=== PATIENT | female | born 1980 | race Caucasian/White ===

== ENCOUNTER → 2016-09-06 | Outpatient (CLI) | payer MEDICARE, MEDICAID | LOC: RAD 13:44 | PROVIDERS: ATTEND Physician Assistant | DX: M25.512 Pain in left shoulder (principal); M19.012 Primary osteoarthritis, left shoulder ==

== ENCOUNTER → 2017-02-28 | Outpatient (CLI) | payer MEDICARE, MEDICAID ==
[2017-02-28 11:30] LABS: ALANINE AMINOTRANSFERASE 26 U/L (9-52); ALBUMIN 4.1 g/dL (3.5-5.0); ALKALINE PHOSPHATASE 71 U/L (38-126); ANION GAP 6 (5-19); ASPARTATE AMINO TRANSFERASE 28 U/L (14-36); BILIRUBIN,DIRECT 0.3 mg/dL (0.0-0.4); BILIRUBIN,TOTAL 0.3 mg/dL (0.2-1.3); BLOOD UREA NITROGEN 6 mg/dL (7-20); C-REACTIVE PROTEIN 21.9 mg/L (<10.0); CALCIUM 9.9 mg/dL (8.4-10.2); CARBON DIOXIDE 31 mmol/L (22-30); CHLORIDE 104 mmol/L (98-107); CREATININE RESULT 0.83 mg/dL (0.52-1.25); GLUCOSE 92 mg/dL (75-110); POTASSIUM 4.2 mmol/L (3.6-5.0); SODIUM 140.6 mmol/L (137-145)
== END ==
LOC: OD 09:59
PROVIDERS: ATTEND Physician Assistant
DX: M25.512 Pain in left shoulder (principal)
CPT/HCPCS: 36415; 80053; 85652; 86038; 86140

== ENCOUNTER 2017-04-20 15:50 | Emergency (ER) | payer MEDICARE, MEDICAID ==
--- NOTE | 2017-04-20 16:28 | ER Document Report ---
ED Oral Problem - General Chief Complaint: Toothache Stated Complaint: NUMBNESS ON RIGHT SIDE OF FACE Time Seen by Provider: 04/20/17 16:15 Mode of Arrival: Ambulatory Information source: Patient Notes: 37-year-old female presents to ED for complaint of dental pain 1 week. She states she saw her primary doctor yesterday who wrote her prescription for penicillin. She is also on chronic pain management for her multiple sclerosis and she took hydrocodone 2 before she came to the emergency room. Since she saw her doctor yesterday she has developed numbness to the from the center of the chin to the line equal to her bottom lip on the right side. She is able to feel all sensation above the line of her lip and to the left of the center of her chin and below the line of her jaw just that one little area of about 2 in. she cannot feel sharpness she can feel pressure in that area. She does have a infected tooth #29 that she has not filled her prescription for Penicillin VK yet. TRAVEL OUTSIDE OF THE [place] IN LAST 30 DAYS: No - HPI Patient complains to provider of: Toothache, Other - Numbness to the right side of her chin Onset: Last week Onset: Gradual Quality of pain: Sharp Severity: Severe Pain Level: 5 Associated symptoms: Toothache Worsened by: Nothing Relieved by: Nothing Similar symptoms previously: Yes Recently seen / treated by doctor/dentist: Yes - Related Data Allergies/Adverse Reactions: No Known Allergies Allergy (Verified 04/20/17 15:54) Past Medical History - General Information source: Patient - Social History Smoking Status: Current Every Day Smoker Cigarette use (# per day): Yes Chew tobacco use (# tins/day): No Smoking Education Provided: Yes - Less than 1 minute Frequency of alcohol use: None Drug Abuse: Marijuana Family History: Reviewed & Not Pertinent Patient has suicidal ideation: No Patient has homicidal ideation: No - Past Medical History Cardiac Medical History: Reports: Hx Hypertension - with anxiety Pulmonary Medical History: Reports: None EENT Medical History: Reports: None Neurological Medical History: Reports: None Endocrine Medical History: Reports: None Renal/ Medical History: Reports: Hx Kidney Stones Malignancy Medical History: Reports: None GI Medical History: Reports: None Musculoskeltal Medical History: Reports Hx Multiple Sclerosis - sees neurologist and [facility] provider Skin Medical History: Reports None Psychiatric Medical History: Reports: Hx Anxiety, Hx Attention Deficit Hyperactivity Disorder, Hx Depression Traumatic Medical History: Reports: None Infectious Medical History: Reports: None Past Surgical History: Reports: Hx Abdominal Surgery, Hx Hysterectomy, Hx Kidney (Renal Surgery) - Immunizations Hx Diphtheria, Pertussis, Tetanus Vaccination: Yes Review of Systems - Review of Systems Constitutional: No symptoms reported EENT: Dental problem, Other - Numbness to the right side of the chin Cardiovascular: No symptoms reported Respiratory: No symptoms reported Gastrointestinal: No symptoms reported Genitourinary: No symptoms reported Female Genitourinary: No symptoms reported Musculoskeletal: No symptoms reported Skin: No symptoms reported Hematologic/Lymphatic: No symptoms reported Neurological/Psychological: No symptoms reported -: Yes All other systems reviewed and negative Physical Exam - Vital signs Vitals: Temp Pulse Resp BP Pulse Ox 98.5 F 94 16 176/103 H 97 04/20/17 15:54 04/20/17 15:54 04/20/17 15:54 04/20/17 15:54 04/20/17 15:54 Interpretation: Normal - General General appearance: Appears well, Alert - HEENT Head: Normocephalic, Atraumatic Eyes: Normal Pupils: PERRL Ears: Normal External canal: Normal Tympanic membrane: Normal Sinus: Normal Nasal: Normal Mouth/Lips: Caries Mucous membranes: Normal Teeth diagram: 1 - Cavity with no abscess noted 2 - States she cannot feel sharp to the area of this part of her chin. States she can feel pressure and movement but she cannot feel sharp or dull. Patient has a history of MS Pharynx: Normal Neck: Normal - Respiratory Respiratory status: No respiratory distress Chest status: Nontender Breath sounds: Normal Chest palpation: Normal - Cardiovascular Rhythm: Regular Heart sounds: Normal auscultation Murmur: No - Abdominal Inspection: Normal Distension: No distension Bowel sounds: Normal Tenderness: Nontender Organomegaly: No organomegaly - Back Back: Normal, Nontender - Extremities General upper extremity: Normal inspection, Nontender, Normal color, Normal ROM , Normal temperature General lower extremity: Normal inspection, Nontender, Normal color, Normal ROM , Normal temperature, Normal weight bearing. No: Wyatt's sign - Neurological Neuro grossly intact: Yes Cognition: Normal Orientation: AAOx4 Paicines Coma Scale Eye Opening: Spontaneous Mariam Coma Scale Verbal: Oriented Paicines Coma Scale Motor: Obeys Commands Paicines Coma Scale Total: 15 Speech: Normal Cranial nerves: Sensory deficit - decreased sensation to right chin. states cannot feel sharp Cerebellar coordination: Normal Motor strength normal: LUE, RUE, LLE, RLE Additional motor exam normals: Equal plasma center nurse Babinski reflex: Normal (flexor plantar) Sensory: Pin-prick - ro right chin states feels the pressure but not the sharp - Psychological Associated symptoms: Normal affect, Normal mood - Skin Skin Temperature: Warm Skin Moisture: Dry Skin Color: Normal Course - Re-evaluation Re-evalutation: 04/20/17 16:[address] Zaragoza. States patient needs to follow up with primary md and MS doctor. Patient is instructed to fill the prescription for Penicillin VK that she was given by her primary care doctor yesterday and to continue taking her pain medicine as has been ordered. She is to use viscous lidocaine a small amount to the area that is painful every 4 hours as needed and to follow-up with the dentist next week. 04/20/17 16:43 I had Ysabel Espinal to go in with me to examine the patient the patient had numbness from the center of her chin to just below the edge of her mouth she had no loss of sensation to her cheek. She was able to feel every prick on her cheek and her neck. She was able to smile. - Vital Signs Vital signs: Temp Pulse Resp BP Pulse Ox 98.6 F 93 20 153/96 H 97 04/20/17 16:35 04/20/17 16:35 04/20/17 16:35 04/20/17 16:35 04/20/17 16:35 Discharge - Discharge Clinical Impression: Pain due to dental caries Condition: Stable Disposition: HOME, SELF-CARE Additional Instructions: TOOTHACHE: Your pain is due to dental decay. The tooth must be repaired in order for you to feel better. You will, therefore, be referred to a dentist. We do not have dentists on the staff at [facility]. Severe swelling or drainage around a tooth usually means a dental abscess. This also requires evaluation and treatment by the dentist, but antibiotics may be prescribed while awaiting dental treatment. You should be rechecked immediately if you develop major swelling of the face, increasing pain, a lump in the jaw or gums, headache, difficulty swallowing, or fever. PENICILLIN V K: Please fill the prescription as it was prescribed yesterday for your dental pain You have been given a prescription for Penicillin VK. Your physician has determined that this is the best antibiotic for your condition. Pen VK can be taken with meals, however more of the antibiotic gets into the bloodstream if it's taken on an empty stomach. Penicillin usually has no side effects. However, allergy to penicillins is common. If you have had an allergic reaction to any drug of the penicillin family, you should never take any other penicillin. Notify your doctor at once if you develop hives, itching, swelling, faintness, or shortness of breath. FOLLOW-UP CARE: You have been referred for follow-up care to the dentists listed below. Call the dentists office for an appointment as you were instructed or within the next two days. If you experience worsening or a significant change in your symptoms, notify the physician immediately or return to the Emergency Department at any time for re-evaluation. [facility] [address], [place] Sunday mornings, by appointment [facility] [address] [place] [address] [facility] [place] [address] [facility] [address] [facility] [address] [email or web address] [address] [place] [address] Sunday- 8:00am to 5:00 pm Will see patients from other [facility]. Charges based on income and family size and accepts Medicare, Medicaid, and Insurances Will pull molars [facility] [id number] Hours of Operation 8:00 am - 4:30 pm days The following dental offices accept Medicaid: [facility] Dr. Morgan Dr. Mckeon Dr. Almonte Dr. Gallagher Kenyon Salcedo, [place], and Marjorie oral surgery Dr. Oliver ([place]) Dr. Xiong ([place]) [facility] Drs. Canales ([place]) Dr. Hughes ([place]) [facility] Dr. Perkins ([place]) Drs. Barrera and ([place]) Medicaid Care Line Forms: Elevated Blood Pressure, Smoking Cessation Education
[2017-04-20] MEDS ORDERED: LIDOCAINE 2% VISCOUS SOLN 20 ML UDCUP PO ONE (16:30)
[2017-04-20 16:37] VITALS: BP 153/96
== END 2017-04-20 16:50 | disposition home or self-care (01) ==
LOC: ER 15:50
DX: K08.9 Disorder of teeth and supporting structures, unspecified (principal); R20.0 Anesthesia of skin; G89.29 Other chronic pain; F17.210 Nicotine dependence, cigarettes, uncomplicated; G35 Multiple sclerosis; Z87.442 Personal history of urinary calculi; Z90.710 Acquired absence of both cervix and uterus
CPT/HCPCS: 99282; J3490

== ENCOUNTER → 2017-08-24 | Outpatient (CLI) | payer MEDICARE, MEDICAID ==
--- NOTE | 2017-08-24 13:38 | RADIOLOGY REPORT (SQ) ---
EXAM DESCRIPTION: MRI HEAD COMBO COMPLETED DATE/TIME: 08/24/2017 1:23 pm REASON FOR STUDY: WHITE MATTER DISEASE (R90.82), GAIT INSTABILITY (R26.81) R90.82 WHITE MATTER DISE ASE, UNSPECIFIED R26.81 UNSTEADINESS ON FEET R41.3 OTHER AMNESIA COMPARISON: 12/13/2013 TECHNIQUE: Multiplanar imaging includes noncontrasted T1, T2, FLAIR, diffusion with ADC map and post gadolinium contrast T1 sequences. Images stored on PACS. CONTRAST TYPE AND DOSE: 15 mL Multihance. RENAL FUNCTION: None required. The patient is less than 50 years old. LIMITATIONS: None. FINDINGS: ANATOMY: No anomalies. Normal vascular flow voids. Pituitary fossa normal. CSF SPACES: Normal in size and contour. No hemorrhage. CEREBRUM: Several well-circumscribed foci of increased signal FLAIR sequence in the periventricular w jory matter are not significantly changed. Several lesions oriented perpendicular to the lateral john tricles. None of the lesions enhance. POSTERIOR FOSSA: No signal alteration. No hemorrhage. No edema, masses, or mass effect. Internal salvatore tory canals, cerebellopontine angles, mastoids normal. No enhancing lesions. No abnormal enhancement post contrast. DIFFUSION IMAGING: Negative for acute or subacute infarction. ORBITS: No masses. Globes normal. PARANASAL SINUSES: No fluid levels. Mucosa normal. OTHER: No other significant finding. IMPRESSION: Inactive demyelinating disease. No significant change. EVIDENCE OF ACUTE STROKE: NO. TECHNICAL DOCUMENTATION: JOB ID: [id number] [employer]- All Rights Reserved
== END ==
LOC: RAD 12:32
PROVIDERS: ATTEND Psychiatry & Neurology Neurology
DX: R90.82 White matter disease, unspecified (principal); R26.81 Unsteadiness on feet; R41.3 Other amnesia
CPT/HCPCS: 70553; A9577

== ENCOUNTER 2018-12-06 13:41 | Emergency (ER) | payer MEDICARE, MEDICAID ==
--- NOTE | 2018-12-06 15:58 | ER Document Report ---
Addendum entered and electronically signed by KIMMY AMAYA PA-C 12/06/18 15:58: Course - Re-evaluation Re-evalutation: 12/06/18 15:58 H/o total hysterectomy. - Vital Signs Vital signs: Temp Pulse Resp BP Pulse Ox 98.3 F 104 H 15 132/91 H 95 12/06/18 14:04 12/06/18 14:04 12/06/18 14:04 12/06/18 14:04 12/06/18 14:04 Original Note: ED Medical Screen (RME) - General Chief Complaint: Abdominal Pain Stated Complaint: ABDOMINAL/SIDE PAIN Time Seen by Provider: 12/06/18 15:52 Primary Care Provider: ALLIE MOCTEZUMA MD [Primary Care Provider] - Follow up as needed TRAVEL OUTSIDE OF THE U.S. IN LAST 30 DAYS: No - HPI Notes: 12/06/18 15:56 Patient is a 38-year-old female with a history of MS and chronic pain who presents complaining of epigastric and right upper quadrant abdominal pain over the past month with occasional pain in her right side of her abdomen as well. Patient states that she has had associated nausea, vomiting, watery diarrhea. Denies KRUSE, fever, neck pain, URI, CP, SOB, dysuria, or rash. I have treated and performed a rapid initial assessment of this patient. A comprehensive ED assessment and evaluation of the patient, analysis of test results and completion of medical decision making process will be conducted by additional ED providers. PHYSICAL EXAMINATION: GENERAL: Well-appearing, well-nourished and in no acute distress. A&Ox4. Answers questions appropriately. LUNGS: Breath sounds clear to auscultation bilaterally and equal. No wheezes rales or rhonchi. HEART: Regular rate and rhythm without murmurs, rubs, gallops. ABDOMEN: Soft, nondistended abdomen. No guarding, no rebound. Normal bowel sounds present. No CVA tenderness bilaterally. + Right upper quadrant andepigastric tenderness (cannot elicit thorough abd exam w/o bed, however). Extremities: No cyanosis, clubbing, or edema b/l. NEUROLOGICAL: Normal speech, normal gait. PSYCH: Normal mood, normal affect. - Related Data Allergies/Adverse Reactions: No Known Allergies Allergy (Verified 12/06/18 13:46) Past Medical History - Past Medical History Cardiac Medical History: Reports: Hx Hypertension - with anxiety Denies: Hx Heart Attack Pulmonary Medical History: Denies: Hx Asthma, Hx Tuberculosis Neurological Medical History: Denies: Hx Cerebrovascular Accident, Hx Seizures Renal/ Medical History: Reports: Hx Kidney Stones. Denies: Hx Peritoneal Dialysis GI Medical History: Denies: Hx Hepatitis, Hx Hiatal Hernia, Hx Ulcer Musculoskeltal Medical History: Reports Hx Multiple Sclerosis - sees neurologist and [facility] provider Psychiatric Medical History: Reports: Hx Anxiety, Hx Attention Deficit Hyperactivity Disorder, Hx Depression Infectious Medical History: Denies: Hx Hepatitis Past Surgical History: Reports: Hx Abdominal Surgery, Hx Hysterectomy, Hx Kidney (Renal Surgery). Denies: Hx Mastectomy, Hx Open Heart Surgery, Hx Pacemaker - Immunizations Hx Diphtheria, Pertussis, Tetanus Vaccination: Yes Physical Exam - Vital signs Vitals: Temp Pulse Resp BP Pulse Ox 98.3 F 104 H 15 132/91 H 95 12/06/18 14:04 12/06/18 14:04 12/06/18 14:04 12/06/18 14:04 12/06/18 14:04 Course - Vital Signs Vital signs: Temp Pulse Resp BP Pulse Ox 98.3 F 104 H 15 132/91 H 95 12/06/18 14:04 12/06/18 14:04 12/06/18 14:04 12/06/18 14:04 12/06/18 14:04 Doctor's Discharge - Discharge Referrals: ALLIE MOCTEZUMA MD [Primary Care Provider] - Follow up as needed
[2018-12-06 16:36] LABS: ABSOLUTE EOSINOPHILS # (AUTO) 0.1 10^3/uL (0.0-0.6); ABSOLUTE LYMPHOCYTES (AUTO) 3.8 10^3/uL (0.5-4.7); ABSOLUTE MONOCYTES (AUTO) 0.5 10^3/uL (0.1-1.4); ABSOLUTE NEUT (AUTO) 4.6 10^3/uL (1.7-8.2); BASOPHILS % (AUTO) 0.3 % (0-2); HEMATOCRIT 43.8 % (36.0-47.0); HEMOGLOBIN 14.8 g/dL (12.0-15.5); LYMPHOCYTES % (AUTO) 42.1 % (13-45); MEAN CORPUSCULAR HEMOGLOBIN 31.8 pg (27.0-33.4); MEAN CORPUSCULAR HGB CONC 33.8 g/dL (32.0-36.0); MEAN CORPUSCULAR VOLUME 94 fl (80-97); MONOCYTES % (AUTO) 5.2 % (3-13); PLATELET COUNT 222 10^3/uL (150-450); RED BLOOD COUNT 4.66 10^6/uL (3.72-5.28); SEGMENTED NEUTROPHILS % (AUTO) 51.4 % (42-78); TOTAL CELLS COUNTED % (AUTO) 100 %
--- NOTE | 2018-12-06 16:37 | RADIOLOGY REPORT (SQ) ---
EXAM DESCRIPTION: U/S ABDOMEN LIMITED W/O DOP COMPLETED DATE/TIME: 12/06/2018 4:29 pm REASON FOR STUDY: epigastric/ruq pain COMPARISON: None. TECHNIQUE: Dynamic and static grayscale images acquired of the abdomen and recorded on PACS. Additio nal selected color Doppler and spectral images recorded. LIMITATIONS: None. FINDINGS: PANCREAS: No masses. Visualized pancreatic duct normal caliber. LIVER: No masses. Echotexture normal. LIVER VASCULATURE: Normal directional flow of the main portal vein and hepatic veins. GALLBLADDER: No stones. Normal wall thickness. No pericholecystic fluid. ULTRASOUND-DETECTED WOODS'S SIGN: Negative. INTRAHEPATIC DUCTS AND COMMON DUCT: CBD and intrahepatic ducts normal caliber. No filling defects. INFERIOR VENA CAVA: Normal flow. AORTA: No aneurysm. RIGHT KIDNEY: Normal size. Normal echogenicity. No solid or suspicious masses. No hydronephrosis. No calcifications. PERITONEAL AND RIGHT PLEURAL SPACE: No ascites or effusions. OTHER: No other significant findings. IMPRESSION: NORMAL RIGHT UPPER QUADRANT ULTRASOUND. TECHNICAL DOCUMENTATION: JOB ID: [id number] [employer]- All Rights Reserved Reading location - IP/workstation name: [email or web address]
[2018-12-06 16:41] LABS: APPEARANCE,URINE SLIGHTLY-CLOUDY; BILIRUBIN,URINE NEGATIVE (NEGATIVE); CALCIUM OXALATE CRYSTALS,URINE RARE /HPF; COLOR,URINE YELLOW; GLUCOSE, URINE NEGATIVE (NEGATIVE); KETONES,URINE NEGATIVE (NEGATIVE); LEUKOCYTE ESTERASE,URINE NEGATIVE (NEGATIVE); NITRITE,URINE NEGATIVE (NEGATIVE); PROTEIN,URINE NEGATIVE (NEGATIVE); URINE SPECIFIC GRAVITY 1.013; UROBILINOGEN,URINE NEGATIVE mg/dL (<2.0)
[2018-12-06 16:51] LABS: ALANINE AMINOTRANSFERASE 21 U/L (9-52); ALBUMIN 4.4 g/dL (3.5-5.0); ALKALINE PHOSPHATASE 61 U/L (38-126); ANION GAP 10 (5-19); ASPARTATE AMINO TRANSFERASE 24 U/L (14-36); BILIRUBIN,DIRECT 0.2 mg/dL (0.0-0.4); BILIRUBIN,TOTAL 0.2 mg/dL (0.2-1.3); BLOOD UREA NITROGEN 6 mg/dL (7-20); CALCIUM 10.3 mg/dL (8.4-10.2); CARBON DIOXIDE 32 mmol/L (22-30); CHLORIDE 100 mmol/L (98-107); GLUCOSE 91 mg/dL (75-110); POTASSIUM 4.4 mmol/L (3.6-5.0); SODIUM 141.5 mmol/L (137-145); TOTAL PROTEIN 7.2 g/dL (6.3-8.2)
[2018-12-06] MEDS ORDERED: METOCLOPRAMIDE HCL 10 MG TABLET PO ONE (18:26)
[2018-12-06] MEDS ORDERED: DICYCLOMINE HCL INJ 20 MG/2 ML AMPULE IM ONE (18:26)
--- NOTE | 2018-12-06 18:31 | ER Document Report ---
ED General - General Chief Complaint: Abdominal Pain Stated Complaint: ABDOMINAL/SIDE PAIN Time Seen by Provider: 12/06/18 15:52 Primary Care Provider: ALLIE MOCTEZUMA MD [NO LOCAL MD] - Follow up as needed Mode of Arrival: Ambulatory Information source: Patient TRAVEL OUTSIDE OF THE [place] IN LAST 30 DAYS: No - HPI Patient complains to provider of: Abdominal discomfort, nausea, vomiting, decreased ability to eat Onset: Other - Chronic problem Onset/Duration: Constant Quality of pain: Fullness Severity: Severe Pain Level: 4 Associated symptoms: None. denies: Chills, Diarrhea, Fever, Nausea, Vomiting Exacerbated by: Denies Relieved by: Denies Similar symptoms previously: No Recently seen / treated by doctor: No Notes: 38-year-old female coming in today with upper abdominal fullness, discomfort, nausea, vomiting, weight loss. Symptoms have been going on for some time. Patient has not seen anybody about this. No fevers or chills. Diarrhea. - Related Data Allergies/Adverse Reactions: No Known Allergies Allergy (Verified 12/06/18 13:46) Past Medical History - General Information source: Patient - Social History Smoking Status: Current Every Day Smoker Chew tobacco use (# tins/day): No Frequency of alcohol use: None Drug Abuse: None Family History: Reviewed & Not Pertinent Patient has suicidal ideation: No Patient has homicidal ideation: No - Past Medical History Cardiac Medical History: Reports: Hx Hypertension - with anxiety Denies: Hx Heart Attack Pulmonary Medical History: Denies: Hx Asthma, Hx Tuberculosis Neurological Medical History: Denies: Hx Cerebrovascular Accident, Hx Seizures Renal/ Medical History: Reports: Hx Kidney Stones. Denies: Hx Peritoneal Dialysis GI Medical History: Denies: Hx Hepatitis, Hx Hiatal Hernia, Hx Ulcer Musculoskeletal Medical History: Reports Hx Multiple Sclerosis - sees neurologist and [facility] provider Psychiatric Medical History: Reports: Hx Anxiety, Hx Attention Deficit Hyperactivity Disorder, Hx Depression Infectious Medical History: Denies: Hx Hepatitis Past Surgical History: Reports: Hx Abdominal Surgery, Hx Hysterectomy, Hx Kidney (Renal Surgery). Denies: Hx Mastectomy, Hx Open Heart Surgery, Hx Pacemaker - Immunizations Hx Diphtheria, Pertussis, Tetanus Vaccination: Yes Review of Systems - Review of Systems Notes: Constitutional: No fevers. No chills. EENT: No eye redness. No eye pain. No ear pain. No sore throat. Cardiovascular: No chest pain. No palpitations. Respiratory: No cough. No shortness of breath. No respiratory distress. Gastrointestinal: Positive for abdominal fullness, nausea, vomiting. Negative for diarrhea Genitourinary: Atraumatic. No lesions. No pain. No discharge. Musculoskeletal: Atraumatic. No swelling. No deformities. Skin: No rash or lesions. Lymphatic: No swollen lymph nodes. Neurologic: No headache. No syncope. Psychiatric: No suicidal or homicidal ideation. Physical Exam - Vital signs Vitals: Temp Pulse Resp BP Pulse Ox 98.3 F 104 H 15 132/91 H 95 12/06/18 14:04 12/06/18 14:04 12/06/18 14:04 12/06/18 14:12/06/18 14:04 - Notes Notes: General: Well-developed, well-nourished. In no acute distress. Non-toxic appearing. Cardiac: Well-perfused. Regular rate and rhythm. No murmurs, rubs, or gallops. Pulmonary: No respiratory distress. No cyanosis. Bilateral lung fiels are clear to auscultation. Abdominal: Non-distended. Non-rigid. Bowels sounds are present in all four quadrants. No guarding or rebound. HEENT: Head is atraumatic. Conjunctivae not reddened. No tearing. PERRL. EOMI. Orbits atraumatic. No periorbital swelling or erythema. Oropharynx is without erythema, swelling, or exudates. Neck: Supple. No adenopathy. No meningismus. Dermatologic: Warm with good turgor. No rash. Atraumatic. Chest: Atraumatic. No chest wall tenderness to palpation. Musculoskeletal: Moves all extremities well. No range of motion deficits. no muscular or joint tenderness. No paraspinal muscle tenderness. no midline spinal tenderness or step-off. Genitourinary: Examination deferred Neurologic: No gross neurologic deficits. Psychiatric: Normal mood. Course - Re-evaluation Re-evalutation: 12/06/18 18:29 Labs normal. Ultrasound normal. Will discharge patient home on Reglan and Bentyl. She can follow-up with gastroenterology. - Vital Signs Vital signs: Temp Pulse Resp BP Pulse Ox 98.3 F 104 H 15 132/91 H 95 12/06/18 14:04 12/06/18 14:04 12/06/18 14:04 12/06/18 14:04 12/06/18 14:04 - Laboratory Result Diagrams: 12/06/18 16:10 12/06/18 16:10 Laboratory results interpreted by me: 12/06/18 12/06/18 16:10 16:10 Carbon Dioxide 32 H BUN 6 L Calcium 10.3 H Urine Ascorbic Acid 40 H Discharge - Discharge Clinical Impression: Abdominal fullness, Nausea Condition: Good Disposition: HOME, SELF-CARE Instructions: Abdominal Pain ([facility]), Antispasmodics ([facility]), Reglan ([facility]) Prescriptions: Dicyclomine HCl [Bentyl 20 mg Tablet] 20 mg PO Q6HP PRN #20 tablet PRN Reason: Metoclopramide HCl [Reglan 10 mg Tablet] 1 tab PO ASDIR PRN #20 tablet PRN Reason: Referrals: ALLIE MOCTEZUMA MD [NO LOCAL MD] - Follow up as needed
[2018-12-06 18:50] VITALS: BP 116/73
== END 2018-12-06 18:51 | disposition home or self-care (01) ==
LOC: ER 13:41
DX: R19.8 Other specified symptoms and signs involving the digestive system and abdomen (principal); R11.2 Nausea with vomiting, unspecified; R10.9 Unspecified abdominal pain; R63.4 Abnormal weight loss; F17.200 Nicotine dependence, unspecified, uncomplicated; I10 Essential (primary) hypertension; Z90.710 Acquired absence of both cervix and uterus
CPT/HCPCS: 99284; 96372; 36415; 83690; 85025; 80053; 81001; 76705; J0500; A9270

== ENCOUNTER → 2019-08-27 | Outpatient (CLI) | payer MEDICARE, MEDICAID ==
--- NOTE | 2019-08-27 13:16 | RADIOLOGY REPORT (SQ) ---
EXAM DESCRIPTION: HAND BILATERAL 2 VIEWS COMPLETED DATE/TIME: 08/27/2019 1:00 pm REASON FOR STUDY: POLYARTHRALGIA M25.50 PAIN IN UNSPECIFIED JOINT COMPARISON: None. EXAM PARAMETERS: NUMBER OF VIEWS: Two views right hand. Two views left hand. TECHNIQUE: AP and lateral radiographic images acquired of bilateral hands. LIMITATIONS: None. FINDINGS: RIGHT HAND: MINERALIZATION: Normal. BONES: No acute fracture or dislocation. No worrisome bone lesions. No significant osteophytes. JOINTS: No erosions. No elvia-articular osteopenia. No chondrocalcinosis. SOFT TISSUES: No swelling. No calcifications. OTHER: No other significant finding. LEFT HAND: MINERALIZATION: Normal. BONES: No acute fracture or dislocation. No worrisome bone lesions. No significant osteophytes. JOINTS: No erosions. No elvia-articular osteopenia. No chondrocalcinosis. SOFT TISSUES: No swelling. No calcifications. OTHER: No other significant finding. IMPRESSION: NEGATIVE STUDY BILATERAL HANDS. NO ACUTE POST-TRAUMATIC CHANGES. NO EXPLANATION FOR PAIN . TECHNICAL DOCUMENTATION: JOB ID: [id number] 2010 [employer]- All Rights Reserved Reading location - IP/workstation name: [email or web address]
[2019-08-27 13:23] LABS: ABSOLUTE EOSINOPHILS # (AUTO) 0.1 10^3/uL (0.0-0.6); ABSOLUTE LYMPHOCYTES (AUTO) 3.3 10^3/uL (0.5-4.7); ABSOLUTE MONOCYTES (AUTO) 0.3 10^3/uL (0.1-1.4); ABSOLUTE NEUT (AUTO) 2.7 10^3/uL (1.7-8.2); BASOPHILS % (AUTO) 0.4 % (0-2); EOSINOPHILS % (AUTO) 1.3 % (0-6); HEMATOCRIT 40.5 % (36.0-47.0); HEMOGLOBIN 14.1 g/dL (12.0-15.5); LYMPHOCYTES % (AUTO) 51.2 % (13-45); MEAN CORPUSCULAR HEMOGLOBIN 32.7 pg (27.0-33.4); MEAN CORPUSCULAR HGB CONC 34.8 g/dL (32.0-36.0); MEAN CORPUSCULAR VOLUME 94 fl (80-97); MONOCYTES % (AUTO) 5.2 % (3-13); PLATELET COUNT 206 10^3/uL (150-450); RED BLOOD COUNT 4.32 10^6/uL (3.72-5.28); RED CELL DISTRIBUTION WIDTH 13.1 % (11.5-14.0); SEGMENTED NEUTROPHILS % (AUTO) 41.9 % (42-78); TOTAL CELLS COUNTED % (AUTO) 100 %; WHITE BLOOD COUNT 6.5 10^3/uL (4.0-10.5)
[2019-08-27 13:46] LABS: ALBUMIN 4.1 g/dL (3.5-5.0); ALKALINE PHOSPHATASE 49 U/L (38-126); ANION GAP 5 (5-19); ASPARTATE AMINO TRANSFERASE 22 U/L (14-36); BILIRUBIN,TOTAL 0.3 mg/dL (0.2-1.3); BLOOD UREA NITROGEN 6 mg/dL (7-20); CALCIUM 9.9 mg/dL (8.4-10.2); CARBON DIOXIDE 31 mmol/L (22-30); CHLORIDE 103 mmol/L (98-107); GLUCOSE 93 mg/dL (75-110); POTASSIUM 4.1 mmol/L (3.6-5.0); TOTAL PROTEIN 6.8 g/dL (6.3-8.2)
[2019-08-27 13:50] LABS: C-REACTIVE PROTEIN < 5.0 mg/L (<10.0)
[2019-08-27 14:08] LABS: ERYTHROCYTE SEDIMENTATION RATE 23 mm/hr (0-20)
[2019-08-28 16:37] LABS: CYTOPLASMIC (C-ANCA) <1:20 titer (Neg:<1:20)
[2019-08-29 07:45] LABS: ATYPICAL PANCA <1:20 titer (Neg:<1:20); CYCLIC CITRUL PEPTIDE IGG/A AB 9 units (0-19)
== END ==
LOC: OD 12:29
PROVIDERS: ATTEND Nurse Practitioner Family
DX: M25.50 Pain in unspecified joint (principal)
CPT/HCPCS: 36415; 80053; 85025; 85652; 86021; 86140; 86200; 86431

== ENCOUNTER → 2019-09-01 | Outpatient (CLI) | payer MEDICARE, MEDICAID ==
--- NOTE | 2019-09-01 11:48 | WOMENS IMAGING REPORT ---
EXAM DESCRIPTION: 3D SCREENING MAMMO BILAT COMPLETED DATE/TIME: 09/01/2019 10:50 am REASON FOR STUDY: Z12.31 ENCOUNTER FOR SCREENING MAMMOGRAM FOR MALIGNANT NEOPLASM OF BREAST Z12.31 ENCNTR SCREEN MAMMOGRAM FOR MALIGNANT NEOPLASM OF REG COMPARISON: None. EXAM PARAMETERS: Views: Standard craniocaudal and mediolateral oblique views of each breast recorded using digital acquisition and breast tomosynthesis. Read with the assistance of CAD. .[facility] - [facility] [employer] Version 9.2 LIMITATIONS: None. FINDINGS: No suspicious masses, suspicious calcifications or architectural distortion. No areas of c oncern. IMPRESSION: NEGATIVE MAMMOGRAM. BIRADS 1. BREAST DENSITY: b. There are scattered areas of fibroglandular density. BIRAD: ASSESSMENT: 1 NEGATIVE RECOMMENDATION: ROUTINE SCREENING COMMENT: The patient has been notified of the results by letter per MQSA requirements. Additional no tification policies are in place for contacting patient with suspicious or incomplete findings. Quality ID #[id number]: The [employer] recommends an annual screening mammogram for women aged 40 years or over. This facility utilizes a reminder system to ensure that all patients receive reminder letters, and/or direct phone calls for appointments. This includes reminders for routine scr eening mammograms, diagnostic mammograms, or other Breast Imaging Interventions when appropriate. Th is patient will be placed in the appropriate reminder system. TECHNICAL DOCUMENTATION: FINDING NUMBER: (1) ASSESSMENT: (1) JOB ID: [id number] 2010 [employer]- All Rights Reserved Reading location - IP/workstation name: [email or web address]
== END ==
LOC: WI 09:59
PROVIDERS: ATTEND Nurse Practitioner Family
DX: Z12.31 Encounter for screening mammogram for malignant neoplasm of breast (principal); Z85.3 Personal history of malignant neoplasm of breast
CPT/HCPCS: 77063; 77067

== ENCOUNTER 2019-11-19 22:05 | Emergency (ER) | payer MEDICARE, MEDICAID ==
[2019-11-19] MEDS ORDERED: METHYLPREDNISOLONE INJ 125 MG/2 ML SDV IV ONE (23:57)
--- NOTE | 2019-11-20 00:04 | ER Document Report ---
ED Skin Rash/Insect Bite/Abscs - General Chief Complaint: Rash Stated Complaint: ALLERGIC REACTION Time Seen by Provider: 11/19/19 23:44 Primary Care Provider: GRISELDA BONE NP [Primary Care Provider] - Follow up as needed Mode of Arrival: Ambulatory Information source: Patient Notes: 39-year-old woman presents to the emergency department history of apparently doing yard work on Sunday when she got into poison fidelina. She complains of rash on her arms and hands bilaterally on the right side of her face involving her lips. And she also is concerned that she is having the sensation that her throat is closing. She denies shortness of breath or wheezing. TRAVEL OUTSIDE OF THE [place] IN LAST 30 DAYS: No - Related Data Allergies/Adverse Reactions: No Known Allergies Allergy (Verified 11/19/19 22:14) Past Medical History - Social History Smoking Status: Current Every Day Smoker Frequency of alcohol use: None Drug Abuse: Marijuana Family History: Reviewed & Not Pertinent Patient has homicidal ideation: No - Past Medical History Cardiac Medical History: Reports: Hx Hypertension - with anxiety Denies: Hx Heart Attack Pulmonary Medical History: Denies: Hx Asthma, Hx Tuberculosis Neurological Medical History: Denies: Hx Cerebrovascular Accident, Hx Seizures Renal/ Medical History: Reports: Hx Kidney Stones. Denies: Hx Peritoneal Dialysis GI Medical History: Denies: Hx Hepatitis, Hx Hiatal Hernia, Hx Ulcer Musculoskeletal Medical History: Reports Hx Multiple Sclerosis - sees neurologist and [facility] provider Psychiatric Medical History: Reports: Hx Anxiety, Hx Attention Deficit Hyperactivity Disorder, Hx Depression Infectious Medical History: Denies: Hx Hepatitis Past Surgical History: Reports: Hx Abdominal Surgery, Hx Hysterectomy, Hx Kidney (Renal Surgery). Denies: Hx Mastectomy, Hx Open Heart Surgery, Hx Pacemaker - Immunizations Hx Diphtheria, Pertussis, Tetanus Vaccination: Yes Review of Systems - Review of Systems Notes: Constitutional: Negative for fever. HENT: Negative for sore throat. Eyes: Negative for visual changes. Cardiovascular: Negative for chest pain. Respiratory: Negative for shortness of breath. Gastrointestinal: Negative for abdominal pain, vomiting or diarrhea. Genitourinary: Negative for dysuria. Musculoskeletal: Negative for back pain. Skin: + Rash. Neurological: Negative for headaches, weakness or numbness. 10 point ROS negative except as marked above and in HPI. Physical Exam - Vital signs Vitals: Temp Pulse Resp BP Pulse Ox 97.9 F 98 12 126/91 H 96 11/19/19 22:13 11/19/19 22:13 11/19/19 22:13 11/19/19 22:13 11/19/19 22:13 - Notes Notes: PHYSICAL EXAMINATION: Physical Exam: General: Well-nourished well-developed in no acute distress HEENT: NC/AT, pupils equal round and reactive to light, MM moist,nares clear, oropharynx mild erythema in the mucous membranes., airway patent Neck: supple, no adenopathy, no masses. Good range of motion Lungs: clear, no wheezing, no rales no rhonchi CVS: Regular rate and rhythm no murmur gallop or rub Abdomen: Soft, active, nontender, no masses, no hepatosplenomegaly Ext: No edema, clubbing or cyanosis. Neuro: Alert and responsive, moving all 4 extremities on command, cranial nerves intact, no focal findings Skin: diffuse erythematous rash involving the volar surfaces of the forearms bilaterally, scattered areas of erythema rash on the fingers and dorsal aspect of the hand. Small patch of erythema noted in the right lateral aspect of the face with some involvement of the right lower lip. PSYCH: Normal mood, normal affect. Course - Re-evaluation Re-evalutation: 11/19/19 23:59 Patient presents with contact dermatitis likely likely due to poison fidelina. She is given an IV dose of steroids, being discharged home with prednisone pack and hydroxyzine. I have expressed to patient that she could follow-up with her primary care doctor as needed. Patient is in agreement with this plan. - Vital Signs Vital signs: Temp Pulse Resp BP Pulse Ox 97.9 F 98 12 126/91 H 96 11/19/19 22:14 11/19/19 22:13 11/19/19 22:13 11/19/19 22:13 11/19/19 22:13 Discharge - Discharge Clinical Impression: Contact dermatitis and eczema due to plant Condition: Good Disposition: HOME, SELF-CARE Instructions: Contact Dermatitis (OM) Additional Instructions: You were treated for a contact dermatitis in the emergency department tonight, use the prednisone and hydroxyzine as prescribed. Follow-up with your primary care doctor as needed if your symptoms are worsening or if you have other concerns you may return to the emergency department for further evaluation and treatment. HOME CARE INSTRUCTIONS & INFORMATION: Thank you for choosing us for your medical needs. We hope you're satisfied with the care you received. After you leave, you must properly care for your problem and, at the same time, observe its progress. Any condition can change. Some illnesses can change rapidly over hours or days. If your condition worsens, return to the Emergency Department or see your physician promptly. ABOUT YOUR X-RAYS AND EKG'S: If you had an EKG or X-rays taken, they have been read by the Emergency Physician. The X-rays and EKG's will also be read by a Radiologist or Dye Boarding Machine Operator within 24 hours. If discrepancies are noted, you will be notified by telephone. Please be certain the ED has a correct telephone number & address where you can be reached. Also, realize that some fractures or abnormalities do not show up on initial X-rays. If your symptoms continue, see your physician. ABOUT YOUR LABORATORY TEST: If you had laboratory tests, the results have been reviewed by the Emergency Physician. Some test results (for example cultures) may not be available for several days. You will be contacted if any test result shows you need additional treatment. Please be certain the ED has a correct telephone number and address where you can be reached. ABOUT YOUR MEDICATIONS: You will receive instructions on how to take your me dicine on the prescription label you receive. Additional information may be provided by the Pharmacy. If you have questions afterwards, call the ED for clarification or further instructions. Some prescribed medications may cause drowsiness. Do not perform tasks such as driving a car or operating machinery without consulting your Pharmacist. If you feel you need a refill of pain medication, your condition will need re-evaluation. Please do not call for a refill of any medication. ABOUT YOUR SIGNATURE: Signature of this document acknowledges to followin. Understanding that you received emergency treatment and that you may be released before al medical problems are known or treated. Please be certain the ED has a correct phone number & address where you can be reached. 2. Acknowledgement that you will arrange for follow-up care as recommended. 3. Authorization for the Emergency Physician to provide information to your follow-up Physician in order to maximize your care. AT ANY TIME, IF YOUR SYMPTOMS CHANGE SIGNIFICANTLY OR WORSEN OR YOU DEVELOP NEW SYMPTOMS, RETURN TO THE EMERGENCY DEPARTMENT IMMEDIATELY FOR RE-EVALUATION. OUR GOAL IS TO PROVIDE EXCELLENT MEDICAL CARE! WE HOPE THAT WE HAVE MET YOUR EXPECTATIONS DURING YOUR EMERGENCY DEPARTMENT VISIT AND THAT YOU FEEL YOU HAVE RECEIVED EXCELLENT CARE! Prescriptions: Prednisone [Deltasone 20 mg Tablet] 1 tab PO BID 5 Days #10 tablet Hydroxyzine Pamoate [Vistaril 25 mg Capsule] 25 mg PO Q6 PRN #30 capsule PRN Reason: Rash Referrals: GRISELDA BONE, SENIOR DRAFTER [Primary Care Provider] - Follow up as needed
[2019-11-20 01:05] VITALS: BP 121/78
== END 2019-11-20 01:01 | disposition home or self-care (01) ==
LOC: ER 22:05
DX: L25.5 Unspecified contact dermatitis due to plants, except food (principal); R09.89 Other specified symptoms and signs involving the circulatory and respiratory systems; F17.200 Nicotine dependence, unspecified, uncomplicated; F12.10 Cannabis abuse, uncomplicated; I10 Essential (primary) hypertension
CPT/HCPCS: 99282; J2930